=== PATIENT | male | born 2000 | race African-American/Black ===

== ENCOUNTER 2023-06-26 23:44 | Emergency (ER) | payer BC, SELFPAY ==
[2023-06-26 23:48] VITALS: BP 107/88; PULSE 71; RESP 18; TEMP 36.3; O2SAT 100
--- NOTE | 2023-06-27 00:48 | ED.GENADULT ---
HPI - General Adult General Chief complaint: Abdominal Pain Stated complaint: abd pain Time Seen by Provider: 06/27/23 00:08 Source: patient Mode of arrival: ambulatory Limitations: no limitations History of Present Illness HPI narrative: this is a 22-year-old male who presents to the ED with chief complaint of right side pain for the past 2 days. Reports it is intermittent in nature and feels like cramping sensation. Reports that has a lot of problems with muscular cramps and this feels similar. pain does not radiate. Denies fevers, chills, nausea, vomiting, urinary symptoms, loss of appetite, injury or trauma. Related Data Allergies Allergy/AdvReac Type Severity Reaction Status Date / Time No Known Allergies Allergy Verified 06/27/23 01:00 Review of Systems Review of Systems: All systems as dictated in HPI Exam Narrative: GENERAL: Well-appearing, well-nourished, and in no acute distress. resting comfortably HEAD: Normocephalic, atraumatic. EYES: PERRLA and EOMI. ENT: Nares clear, no rhinorrhea or epistaxis. Mucous membranes moist. Oropharynx without tonsillar hypertrophy exudate or other lesions. NECK: Supple. No adenopathy or masses. CHEST: No respiratory distress. Clear to auscultation. No wheezes rales or rhonchi HEART: Regular rate and rhythm. No murmur heard. Normal peripheral pulses. ABDOMEN: There is tenderness to the lateral abdominal wall in the musculature. Just inferior to the inferior most ribs. Spann sign negative. McBurney point negative. No CVA tenderness bilaterally. Soft, nontender, nondistended, normal active bowel sounds. MSK: Normal range of motion. No edema. SKIN: Warm, dry, no rash. NEURO: Alert and oriented x3. No focal deficits. PSYCH: Normal mood and affect. Course Vital Signs Vital signs: Vital Signs Temperature 97.3 F L 06/26/23 23:48 Pulse Rate 71 06/26/23 23:48 Respiratory Rate 18 06/26/23 23:48 Blood Pressure 107/88 06/26/23 23:48 Pulse Oximetry 100 06/26/23 23:48 Oxygen Delivery Room Air 06/26/23 23:48 Temperature 97.3 F L 06/26/23 23:48 Pulse Rate 60 06/27/23 02:13 Respiratory Rate 17 06/27/23 02:13 Blood Pressure 149/96 H 06/27/23 02:13 Pulse Oximetry 98 06/27/23 02:13 Oxygen Delivery Room Air 06/26/23 23:48 Medical Decision Making MDM Narrative Medical decision making narrative: This is a 22-year-old male who presents to the ED with chief complaint of right side pain for the past day. Described as cramps. Vitals are normal. Exam shows tenderness focally just inferior to the right lateral ribs. There is no flank tenderness. No Spann sign. Overall abdominal exam is benign. Lab work is grossly unremarkable. Urinalysis negative. He improved greatly with Toradol. Shared decision making to avoid CT scan given otherwise reassuring workup. Symptoms consistent with a musculoskeletal etiology of pain. Pt will be discharged in stable condition. Return precautions given and supportive measures discussed. Pt is understanding and agreeable with plan for discharge and follow-up with PCP. Vital Signs Vital Signs: Vital Signs Temperature 97.3 F L 06/26/23 23:48 Pulse Rate 71 06/26/23 23:48 Respiratory Rate 18 06/26/23 23:48 Blood Pressure 107/88 06/26/23 23:48 Pulse Oximetry 100 06/26/23 23:48 Oxygen Delivery Room Air 06/26/23 23:48 Temperature 97.3 F L 06/26/23 23:48 Pulse Rate 60 06/27/23 02:13 Respiratory Rate 17 06/27/23 02:13 Blood Pressure 149/96 H 06/27/23 02:13 Pulse Oximetry 98 06/27/23 02:13 Oxygen Delivery Room Air 06/26/23 23:48 Lab Data 06/27/23 00:48 06/27/23 00:48 Labs: Lab Results 06/27/23 06/27/23 Range/Units 00:48 01:01 WBC 5.5 (4.5-10.0) K/mm3 RBC 4.72 (4.6-6.20) M/mm3 Hgb 14.4 (14.0-18.0) g/dL Hct 41.3 L (42.0-52.0) % MCV 87.5 (80-100) fl MCH 30.5 (26-34) pg MCHC 34
[2023-06-27 00:54] LABS: Basophils Percent Auto 0.4 % (0.2-1.2); Eosinophils Absolute Auto 0.1 K/mm3 (0-0.3); Eosinophils Percent Auto 0.9 % (0-4.4); Hematocrit 41.3 % (42.0-52.0); Hemoglobin 14.4 g/dL (14.0-18.0); Immature Granulocyte Absolute 0.01 K/mm3 (0.00-0.031); Immature Granulocyte Percent A 0.2 % (0-0.5); Lymphocytes Absolute Auto 1.99 K/mm3 (0.9-3.2); Lymphocytes Percent Auto 36.2 % (18.3-44.2); Mean Corpuscular HGB Conc 34.9 g/dl (32-36); Mean Corpuscular Hemoglobin 30.5 pg (26-34); Mean Corpuscular Volume 87.5 fl (80-100); Mean Platelet Volume 10.2 fl (7.4-10.4); Monocytes Absolute Auto 0.6 K/mm3 (0.1-0.6); Monocytes Percent Auto 10.7 % (2.6-8.5); Neutrophils Absolute Auto 2.8 K/mm3 (1.3-6.7); Neutrophils Percent Auto 51.6 % (45.5-73.1); Platelet Count Result 250 k/mm3 (150-375); Red Blood Count 4.72 M/mm3 (4.6-6.20); Red Cell Distribution Width 12.7 % (11.5-14.5); White Blood Count 5.5 K/mm3 (4.5-10.0)
[2023-06-27] MEDS: KETOROLAC 15 MG/ML VIAL (*BKC) 30 MG IV PUSH (01:02)
[2023-06-27 01:08] LABS: Appearance Urine Clear (Clear); Bilirubin Urine Negative (Negative); Blood Urine Negative (Negative); Color Urine Yellow (Yellow); Glucose Urine UA Negative (Negative); Ketones Urine Negative (Negative); Leukocyte Esterase Ur Negative LEU/UL (Negative); Nitrate Urine Negative (Negative); Protein Urine Negative (Negative); Specific Grav Ur 1.013 (1.001-1.035); pH Urine 6.5 (5.0-9.0)
[2023-06-27 01:12] LABS: Alanine Aminotransferase 24 U/L (6-50); Albumin Level 4.4 g/dL (3.5-5.1); Alkaline Phosphatase 76 U/L (38-126); Anion Gap 7 mmol/L (8-16); Aspartate Amino Transferase 35 U/L (17-59); Bilirubin,Total 0.6 mg/dL (0.2-1.3); Blood Urea Nitrogen 12 mg/dL (9-20); Calcium 8.9 mg/dL (8.4-10.2); Carbon Dioxide 27 mmol/L (22-30); Chloride 103 mmol/L (98-107); Estimated CRCL calculation 115 ml/min; Estimated Glomerular Filt Rate > 60; Glucose 101 mg/dL (65-110); Lipase 89 U/L (23-300); Potassium 3.7 mmol/L (3.4-5.0); Sodium 137 mmol/L (137-145)
[2023-06-27 02:00] VITALS: BP 110/78; PULSE 70; RESP 17; O2SAT 100
[2023-06-27 02:12] LABS: Add Urine Microscopic? NO
[2023-06-27 02:13] VITALS: BP 149/96; PULSE 60; RESP 17; O2SAT 98
== END 2023-06-27 02:16 | disposition home or self-care (01) ==
PROVIDERS: Emergency Medicine; Emergency Provider Physician Assistant
DX: R10.9 Unspecified abdominal pain (principal)
CPT/HCPCS: 36415; 80053; 81003; 83690; 85025; 96374; 99284; J1885

== ENCOUNTER 2023-07-03 21:24 | Emergency (ER) | payer BC, SELFPAY ==
--- NOTE | ~2023-07-03 | CT_ITS ---
EXAMINATION: CT abdomen pelvis w con INDICATION: Right-sided abdominal pain TECHNIQUE: Computed tomographic images of the abdomen and pelvis were obtained after the administrati on of 100 cc of Omnipaque 350 intravenous contrast. The dose-length product (DLP) was 840.87 mGy-cm. Automated exposure control and iterative reconstruction technique were employed. COMPARISON: None available FINDINGS: The lung bases are clear. The heart size is normal. Cysts of the liver measure up to 5 mm i n the right hepatic lobe. The spleen, pancreas, gallbladder, and adrenal glands are normal. The kidne ys are unremarkable. No stones are identified in the kidneys, ureters, or bladder. No hydronephrosis or hydroureter. No pathologically enlarged abdominal or pelvic lymph nodes are identified. No free in traperitoneal gas or evidence of bowel obstruction. The appendix is normal. There is mild distention of the urinary bladder. IMPRESSION: 1. No CT correlate for the patient's symptoms. Reviewed, dictated and finalized at location F. [employer]
[2023-07-03 21:50] VITALS: BP 135/72; RESP 16; TEMP 36.6; O2SAT 100
[2023-07-04] MEDS: ONDANSETRON INJ 4 MG/2 ML VIAL IV PUSH (02:44)
[2023-07-04] MEDS: MORPHINE SULFATE (*CRX) 4 MG/ML INJ IV PUSH (02:44)
[2023-07-04 02:50] VITALS: BP 136/94; PULSE 76; RESP 15; O2SAT 100
[2023-07-04 03:00] LABS: Basophils Percent Auto 0.1 % (0.2-1.2); Eosinophils Absolute Auto 0.1 K/mm3 (0-0.3); Eosinophils Percent Auto 0.7 % (0-4.4); Hemoglobin 14.4 g/dL (14.0-18.0); Immature Granulocyte Absolute 0.02 K/mm3 (0.00-0.031); Immature Granulocyte Percent A 0.3 % (0-0.5); Mean Corpuscular HGB Conc 34.3 g/dl (32-36); Mean Corpuscular Hemoglobin 30.3 pg (26-34); Mean Corpuscular Volume 88.2 fl (80-100); Mean Platelet Volume 10.7 fl (7.4-10.4); Monocytes Absolute Auto 0.5 K/mm3 (0.1-0.6); Monocytes Percent Auto 7.2 % (2.6-8.5); Neutrophils Percent Auto 71.7 % (45.5-73.1); Platelet Count Result 242 k/mm3 (150-375); Red Blood Count 4.76 M/mm3 (4.6-6.20)
[2023-07-04 03:06] LABS: Alanine Aminotransferase 28 U/L (6-50); Albumin Level 4.4 g/dL (3.5-5.1); Alkaline Phosphatase 81 U/L (38-126); Anion Gap 8 mmol/L (8-16); Aspartate Amino Transferase 37 U/L (17-59); Bilirubin,Total 0.6 mg/dL (0.2-1.3); Blood Urea Nitrogen 12 mg/dL (9-20); Calcium 9.2 mg/dL (8.4-10.2); Carbon Dioxide 30 mmol/L (22-30); Chloride 103 mmol/L (98-107); Estimated CRCL calculation 97 ml/min; Estimated Glomerular Filt Rate > 60; Glucose 106 mg/dL (65-110); Lipase 50 U/L (23-300); Potassium 4.2 mmol/L (3.4-5.0); Sodium 141 mmol/L (137-145)
--- NOTE | 2023-07-04 03:18 | ED.ABDPAIN ---
HPI - Abdominal Pain General Chief Complaint: Abdominal Pain Stated Complaint: right flank pain Time Seen by Provider: 07/04/23 01:38 History of Present Illness HPI narrative: Patient is a 22-year-old gentleman who presents emergency department with chief complaint of right flank pain. The patient reports that he was coughing and had pain in the right side of his abdomen patient reports symptoms are worse with inspiration worse with movement. Patient denies fever denies chills denies shortness of breath. Related Data Allergies Allergy/AdvReac Type Severity Reaction Status Date / Time No Known Allergies Allergy Verified 07/03/23 21:24 Review of Systems Review of Systems: A 10 system review of systems was completed on the patient and is negative except for what is stated in the HPI. Nursing and ancillary documentation was reviewed. Exam Narrative: GENERAL: Well-appearing, well-nourished, and in no acute distress. HEAD: Normocephalic, atraumatic. EYES: PERRLA and EOMI. ENT: Nares clear, no rhinorrhea or epistaxis. Mucous membranes moist. NECK: Supple. CHEST: Clear to auscultation. No respiratory distress. chest wall is tender to palpation in the lower ribs HEART: Regular rate and rhythm. No murmur heard. Normal peripheral pulses. ABDOMEN: Soft, tenderness to palpation in the right upper quadrant, nondistended, normal active bowel sounds. EXTREMITIES: Normal range of motion. No edema. SKIN: Warm, dry, no rash. NEURO: No focal deficits. Alert and oriented x3. PSYCH: Normal mood and affect. Course Vital Signs Vital signs: Vital Signs Temperature 36.6 C 07/03/23 21:50 Respiratory Rate 16 07/03/23 21:50 Blood Pressure 135/72 07/03/23 21:50 Pulse Oximetry 100 07/03/23 21:50 Oxygen Delivery Room Air 07/03/23 21:50 Temperature 36.6 C 07/03/23 21:50 Pulse Rate 60 07/04/23 05:58 Respiratory Rate 15 07/04/23 05:58 Blood Pressure 128/78 07/04/23 05:58 Pulse Oximetry 100 07/04/23 05:58 Oxygen Delivery Room Air 07/03/23 21:50 MDM - Abdominal Pain MDM Narrative Medical decision making narrative: differential diagnosis includes rib fracture, intra-abdominal infection, cholecystitis, diverticulitis pancreatitis laboratory studies were obtained the patient which within normal limits. CT scan of the abdomen pelvis showed no acute abnormality Lab Data 07/04/23 02:43 07/04/23 02:43 Labs: Lab Results 07/04/23 Range/Units 02:43 WBC 7.0 (4.5-10.0) K/mm3 RBC 4.76 (4.6-6.20) M/mm3 Hgb 14.4 (14.0-18.0) g/dL Hct 42.0 (42.0-52.0) % MCV 88.2 (80-100) fl MCH 30.3 (26-34) pg MCHC 34.3 (32-36) g/dl RDW 13.0 (11.5-14.5) % Plt Count 242 (150-375) k/mm3 MPV 10.7 H (7.4-10.4) fl Immature Gran % (Auto) 0.3 (0-0.5) % Neut % (Auto) 71.7 (45.5-73.1) % Lymph % (Auto) 20.0 (18.3-44.2) % [place] % (Auto) 7.2 (2.6-8.5) % Eos % (Auto) 0.7 (0-4.4) % Baso % (Auto) 0.1 L (0.2-1.2) % Lymph # (Auto) 1.40 (0.9-3.2) K/mm3 [place] # (Auto) 0.5 (0.1-0.6) K/mm3 Eos # (Auto) 0.1 (0-0.3) K/mm3 Baso # (Auto) 0.0 (0.0-0.1) K/mm3 Abs Immat Gran (auto) 0.02 (0.00-0.031) K/mm3 Absolute Neuts (auto) 5.0 (1.3-6.7) K/mm3 Absolute Nucleated RBC 0.0 (0.0-0.012) K/mm3 Nucleated RBC % 0.0 (0.0-0.2) % Sodium 141 (137-145) mmol/L Potassium 4.2 (3.4-5.0) mmol/L Chloride 103 (98-107) mmol/L Carbon Dioxide 30 (22-30) mmol/L Anion Gap 8 (8-16) mmol/L BUN 12 (9-20) mg/dL Creatinine 1.20 (0.7-1.3) mg/dL Estim Creat Clear Calc 97 ml/min Estimated GFR > 60 (59 - ) Glucose 106 (65-110) mg/dL Calcium 9.2 (8.4-10.2) mg/dL Total Bilirubin 0.6 (0.2-1.3) mg/dL AST 37 (17-59) U/L ALT 28 (6-50) U/L Alkaline Phosphatase 81 (38-126) U/L Total Protein 8.0 (6.3-8.2) g/dL Albumin 4.4 (3.5-5.1) g/dL Lipase 50 (23-300) U/L Urine Color Yellow (Yellow) Urine Appear
[2023-07-04 05:58] VITALS: BP 128/78; PULSE 60; RESP 15; O2SAT 100
[2023-07-04 05:59] LABS: Appearance Urine Clear (Clear); Bilirubin Urine Negative (Negative); Blood Urine Negative (Negative); Color Urine Yellow (Yellow); Glucose Urine UA Negative (Negative); Ketones Urine Negative (Negative); Leukocyte Esterase Ur Negative LEU/UL (Negative); Nitrate Urine Negative (Negative); Protein Urine Negative (Negative); pH Urine 6.5 (5.0-9.0)
[2023-07-04 06:10] LABS: Specific Grav Ur 1.049 (1.001-1.035)
[2023-07-04 06:11] LABS: Add Urine Microscopic? NO
[2023-07-04] MEDS: HYDROcodone/acetaminophen (*CRX) 5-325 MG TABLET 1 TAB PO (07:37)
[2023-07-04 07:43] VITALS: BP 119/75; PULSE 74; RESP 13; O2SAT 99
== END 2023-07-04 07:45 | disposition home or self-care (01) ==
PROVIDERS: Emergency Provider Emergency Medicine
DX: R10.11 Right upper quadrant pain (principal)
CPT/HCPCS: 36415; 74177; 80053; 81003; 83690; 85025; 96374; 96375; 99284; A9270; J2270; J2405; Q9967

== ENCOUNTER 2023-11-26 22:47 | Emergency (ER) | payer SELFPAY ==
[2023-11-26 22:48] VITALS: BP 158/109; PULSE 70; RESP 16; TEMP 36.4; O2SAT 99
--- NOTE | 2023-11-27 01:46 | ED.GENADULT ---
HPI - General Adult General Chief complaint: Unspecified Stated complaint: i think i pulled a rib muscle Time Seen by Provider: 11/27/23 00:12 Source: patient Limitations: no limitations History of Present Illness HPI narrative: Patient is a 23-year-old male presents to the emergency department complaining of a rib strain. Patient notes he has been coughing for the past few days and with no started to have some left lower rib pain every coughs. Patient is to history is in the past when he strain his ribs exam better with medications. Patient does not want an x-ray. Denies any significant difficulty breathing. Patient denies any significant mucus or sputum production when he coughs. Patient denies fever, chest pain, history of blood clots, urinary changes. Patient is the tried Motrin with only minimal relief. Patient is the pain is worse whenever he is coughing or significantly straining his left ribs. Related Data Allergies Allergy/AdvReac Type Severity Reaction Status Date / Time No Known Allergies Allergy Verified 07/03/23 21:24 Review of Systems Review of Systems: A 10 system review of systems was completed on the patient and is negative except for what is stated in the HPI. Nursing and ancillary documentation was reviewed. PMFSH Comments At time of signature, I have reviewed and agree with nursing past medical, surgical, social and family history unless otherwise noted. Please see the nursing chart for further information. There is no relevant family history pertinent to the presenting complaint. Exam Narrative: CONST: No acute distress. Well nourished. HENMT: Head is normocephalic and atraumatic. Moist mucous membranes. EYES: No conjunctival icterus, injection, or pallor NECK: No meningeal signs. RESP: Able to speak in full sentences. Normal respiratory effort. CTAB. CARDIO: Regular rate. Regular rhythm. 2+ radial pulses bilaterally. GI: Nondistended. No tenderness to palpation. Soft. : No CVA tenderness to palpation. SKIN: No rashes or lesions noted on exposed skin. NEURO: Oriented x3. Moves all extremities. EXTREM/MSK/BACK: No pedal edema. Mild left lateral inferior chest wall tenderness to palpation, no crepitus, no palpable deformities. PSYCH: Normal affect. Course Vital Signs Vital signs: Vital Signs Temperature 97.6 F 11/26/23 22:48 Pulse Rate 70 11/26/23 22:48 Respiratory Rate 16 11/26/23 22:48 Blood Pressure 158/109 H 11/26/23 22:48 Pulse Oximetry 99 11/26/23 22:48 Oxygen Delivery Room Air 11/26/23 22:48 Temperature 97.6 F 11/26/23 22:48 Pulse Rate 70 11/26/23 22:48 Respiratory Rate 16 11/26/23 22:48 Blood Pressure 158/109 H 11/26/23 22:48 Pulse Oximetry 99 11/26/23 22:48 Oxygen Delivery Room Air 11/26/23 22:48 Medical Decision Making MDM Narrative Medical decision making narrative: Patient presents with the above complaint. Initial vitals are remarkable for no significant abnormalities. Physical examination as noted above. Plan discussed: Patient not drive to the emergency department today. Will give diazepam for muscle relaxer, Toradol for pain, lidocaine patch. Patient does not want an x-ray today. Patient advised on strict return precautions. Patient demonstrates understanding and agreeable plan of care. Patient discharged in stable condition. Vital Signs Vital Signs: Vital Signs Temperature 97.6 F 11/26/23 22:48 Pulse Rate 70 11/26/23 22:48 Respiratory Rate 16 11/26/23 22:48 Blood Pressure 158/109 H 11/26/23 22:48 Pulse Oximetry 99 11/26/23 22:48 Oxygen Delivery Room Air 11/26/23 22:48 Temperature 97.6 F 11/26/23 22:48 Pulse Rate 70 11/26/23 22:48 Respiratory Rate 16 11/26/23 22:48 Blood Pressure 158/109 H 11/26/23 22:48 Pulse Oximetry 99 11/26/23 22:48 Oxygen Delivery Room Air 11/26/23 22:48 Discharge Plan Discharge Clinical Impression: Rib sprain Q
[2023-11-27] MEDS: LIDOCAINE 5% PATCH 1 PATCH TRANSDERM (02:18)
[2023-11-27] MEDS: KETOROLAC 30 MG/ML VIAL (*BKC) 15 MG IM (02:18)
[2023-11-27] MEDS: diazePAM (*CRX) 5 MG TABLET PO (02:18)
[2023-11-27 02:29] VITALS: BP 152/82; PULSE 71; RESP 14; O2SAT 100
== END 2023-11-27 02:29 | disposition home or self-care (01) ==
PROVIDERS: Emergency Provider Student in an Organized Health Care Education/Training Program; PCP Family Medicine
DX: S23.41XA Sprain of ribs, initial encounter (principal); X50.9XXA Other and unspecified overexertion or strenuous movements or postures, initial encounter
CPT/HCPCS: 96372; 99283; A9270; J1885

== ENCOUNTER 2024-10-31 18:32 | Emergency (ER) | payer SELFPAY ==
--- NOTE | ~2024-10-31 | CT_ITS ---
CT abdomen pelvis w con Ordering provider: Norris Whaley MD History: 23 years Male with . Generalized cramping . Comparison: July 04, 2023 Technique: CT abdomen and pelvis with IV and without oral contrast. Automated exposure control and it erative reconstruction technique were employed. The dose-length product was 1472.37 mGy-cm. 100 mL Om nipaque 350 was given. Findings: VISUALIZED LOWER CHEST: Dependent atelectatic changes in the right lung base posteriorly. UPPER ABDOMINAL ORGANS: Liver: Tiny hyperdensities in the right lobe of the liver most likely cysts unchanged. Gallbladder: Normal. Spleen: Normal. Stomach/duodenum: Normal. Pancreas: Slightly prominent pancreatic duct. Follow-up advised. Adrenals: Normal. Kidneys: Normal. PELVIC ORGANS: The bladder is underfilled with thickened wall. Evaluation for cystitis advised. BOWEL AND MESENTERY: Colon: No evidence of the diverticulitis. Fecal material in the right side of the colon. Normal appen kathy. Small Bowel: Normal. No obstruction. Peritoneum/mesentery: No free air or free fluid. No mesenteric lymphadenopathy. RETROPERITONEUM: Normal aorta. No retroperitoneal lymphadenopathy. MUSCULOSKELETAL: Superficial soft tissues: The superficial soft tissues are normal. Bones: Normal spine. IMPRESSION: 1. No evidence of appendicitis, diverticulitis or intestinal obstruction. 2. Tiny cysts in the liver unchanged from previous examination. 3. Constipation. 4. Thickening of the wall of the gallbladder which may indicate cystitis. Clinical correlation advis ed. Reviewed, dictated and finalized at location A. IMPRESSION: 1. No evidence of appendicitis, diverticulitis or intestinal obstruction. 2. Tiny cysts in the liver unchanged from previous examination. 3. Constipation. 4. Thickening of the wall of the gallbladder which may indicate cystitis. Clin ical correlation advised.
[2024-10-31 18:34] VITALS: BP 157/89; PULSE 90; RESP 16; TEMP 36.6; O2SAT 97
[2024-10-31 22:26] VITALS: BP 159/85; PULSE 86; RESP 18; O2SAT 99
--- NOTE | 2024-10-31 22:34 | ED_ITS ---
HPI - Abdominal Pain General Chief Complaint: Abdominal Pain Stated Complaint: abd cramping Time Seen by Provider: 10/31/24 22:06 History of Present Illness HPI narrative: Patient is a 23-year-old male who presents to the emergency department this evening complaining of abdominal cramping for the past 2 days. Denies any nausea vomiting or diarrhea, any constipation. Denies any similar symptoms in the past. Denies any recent illness, fevers or chills. No additional symptoms or concerns at this time. Related Data Allergies Allergy/AdvReac Type Severity Reaction Status Date / Time No Known Allergies Allergy Verified 10/31/24 18:33 Review of Systems 2 Review of Systems: All systems are reviewed and are negative unless stated otherwise in the HPI. Exam 2 Narrative: General: Alert, awake, afebrile, in no acute distress. HEENT: PERRL, no rhinorrhea, no post nasal drip, oropharynx clear. Neck: Trachea midline, no JVD, no lymphadenopathy. Cardiovascular: Regular rate and rhythm, no murmurs, rubs or gallops, no peripheral edema. Respiratory: Clear to auscultation bilaterally, no tachypnea, no wheezing, no rhonchi, no rubs, no respiratory distress. Abdomen: Soft, nontender, nondistended, no rebound, no guarding, no peritoneal signs. Musculoskeletal: No joint swelling or deformity, normal muscle tone. Skin: No rashes or petechia, no signs of infection. Psychiatric: Alert and oriented, normal behavior and judgment for situation. Neurological: Alert and oriented to person, place, and time. Follows all commands. No focal deficits, speech is clear and fluent. Course Vital Signs Vital signs: Vital Signs Temperature 97.9 F 10/31/24 18:34 Pulse Rate 90 10/31/24 18:34 Respiratory Rate 16 10/31/24 18:34 Blood Pressure 157/89 H 10/31/24 18:34 Pulse Oximetry 97 10/31/24 18:34 Oxygen Delivery Room Air 10/31/24 18:34 Temperature 97.9 F 10/31/24 18:34 Pulse Rate 61 10/31/24 23:32 Respiratory Rate 15 10/31/24 23:32 Blood Pressure 138/94 H 10/31/24 23:32 Pulse Oximetry 99 10/31/24 23:32 Oxygen Delivery Room Air 10/31/24 18:34 MDM - Abdominal Pain MDM Narrative Medical decision making narrative: The patient was evaluated by myself in the emergency department. History is obtained from patient who is an independent historian and physical exam was performed. External medical records were reviewed at this time. IV was established and pertinent tests were ordered. Patient was administered 1 L IV fluid bolus with normal saline, 2 mg of IV morphine for pain and 4 mg of IV Zofran for nausea. Laboratory results obtained revealing a lipase level of 878 otherwise unremarkable. Imaging studies obtained included CT abdomen pelvis with IV contrast which was independently interpreted by me revealing: IMPRESSION: 1. No evidence of appendicitis, diverticulitis or intestinal obstruction. 2. Tiny cysts in the liver unchanged from previous examination. 3. Constipation. 4. Thickening of the wall of the gallbladder which may indicate cystitis. Clinical correlation advised. Patient was informed of these findings at bedside. Denies any right upper or left upper quadrant abdominal pain. Denies any history of pancreatitis. Patient admits that throughout the past 3 days he has not been having as regular bowel movements that he see normally does. He was informed that he will be placed on a stool softener and laxative to help with his constipation. Patient is requesting a script for muscle relaxers as well. Differential diagnosis considerations include pancreatitis, appendicitis, gastritis, peptic ulcer disease. Comorbidities impacting this visit include none. I have evaluated and discussed social determinants of health with the patient that could potentially impact subsequent diagnosis and treatment plans. On repeat assessment of the patient, reevaluation revealed that the patient is doing well and is in no acute distress. Patient symptoms have improved since she arrived to our emergency department. Repeat vital signs were all reviewed and noted to be stable. Differential diagnosis and treatment plan were discussed with the patient at bedside. Patient agrees with discussion and after shared medical decision making agrees with discharge. All questions were answered to the patient's satisfaction. Patient will follow up with his PCP in 3-5 days. Script for Robaxin, Colace and MiraLax was sent to patient's pharmacy to take as prescribed Patient was provided with strict return precautions and instructed to return to the emergency department if any new or worsening symptoms develop. The patient was discharged in stable condition. Lab Data 10/31/24 22:18 10/31/24 22:18 Labs: Lab Results 10/31/24 10/31/24 Range/Units 22:18 22:23 WBC 8.6 (4.5-10.0) K/mm3 RBC 5.59 (4.6-6.20) M/mm3 Hgb 16.1 (14.0-18.0) g/dL Hct 46.6 (42.0-52.0) % MCV 83.4 (80-100) fl MCH 28.8 (26-34) pg MCHC 34.5 (32-36) g/dl RDW 13.2 (11.5-14.5) % Plt Count 285 (150-375) k/mm3 MPV 10.6 H (7.4-10.4) fl Immature Gran % (Auto) 0.1 (0-0.5) % Neut % (Auto) 61.0 (45.5-73.1) % Lymph % (Auto) 29.9 (18.3-44.2) % [place] % (Auto) 8.0 (2.6-8.5) % Eos % (Auto) 0.8 (0-4.4) % Baso % (Auto) 0.2 (0.2-1.2) % Lymph # (Auto) 2.57 (0.9-3.2) K/mm3 [place] # (Auto) 0.7 H (0.1-0.6) K/mm3 Eos # (Auto) 0.1 (0-0.3) K/mm3 Baso # (Auto) 0.0 (0.0-0.1) K/mm3 Abs Immat Gran (auto) 0.01 (0.00-0.031) K/mm3 Absolute Neuts (auto) 5.2 (1.3-6.7) K/mm3 Absolute Nucleated RBC 0.000 (0.0-0.012) K/mm3 Nucleated RBC % 0.0 (0.0-0.2) % Sodium 137 (137-145) mmol/L Potassium 4.2 (3.4-5.0) mmol/L Chloride 102 (98-107) mmol/L Carbon Dioxide 26 (22-30) mmol/L Anion Gap 9 (4-12) mmol/L BUN 12 (9-20) mg/dL Creatinine 1.29 (0.7-1.3) mg/dL Estim Creat Clear Calc 99 ml/min Estimated GFR > 60 (59 - ) Glucose 101 (65-110) mg/dL Calcium 9.4 (8.4-10.2) mg/dL Magnesium 2.3 (1.6-2.3) mg/dL Total Bilirubin 0.4 (0.2-1.3) mg/dL AST 55 (17-59) U/L ALT 41 (6-50) U/L Alkaline Phosphatase 104 (38-126) U/L Total Protein 8.6 H (6.3-8.2) g/dL Albumin 4.7 (3.5-5.1) g/dL Lipase 878 H (23-300) U/L Urine Color Yellow (Yellow) Urine Appearance Clear (Clear) Urine pH 6.0 (5.0-9.0) Ur Specific [place] 1.012 (1.001-1.035) Urine Protein Negative (Negative) mg/dL Urine Glucose (UA) Negative (Negative) mg/dL Urine Ketones Negative (Negative) mg/dL Ur Blood (Man) Negative (Negative) Urine Nitrate Negative (Negative) Urine Bilirubin Negative (Negative) Urine Urobilinogen 0.2 (<2.0) mg/dL Leukocyte Esterase Rfl Trace H (Negative) ODILIA/UL Urine RBC 0-2 (0-2) /hpf Urine WBC 0-5 (0-3) /hpf Ur Squamous Epith Cells None seen (Few) /hpf Urine Bacteria None seen /hpf Urine Casts 0-2 Imaging Data Radiologist's impression: ITS Impressions Abdomen/Pelvis CT 10/31/24 23:48 IMPRESSION: 1. No evidence of appendicitis, diverticulitis or intestinal obstruction. 2. Tiny cysts in the liver unchanged from previous examination. 3. Constipation. 4. Thickening of the wall of the gallbladder which may indicate cystitis. Clinical correlation advised. Discharge Plan Discharge Clinical Impression: Constipation, Abdominal pain Patient Disposition: Home Condition: Improved Instructions: Antibiotic Form, Constipation (DC), Abdominal Pain (ED) Additional Instructions: Please follow-up with the family doctor within the next 3-5 days. With emergency room for new worsening symptoms develop. Take the prescribed medications as instructed for your constipation. Patient Language: Jamaican Prescriptions: New docusate sodium [Colace] 100 mg capsule 100 mg PO BID 5 Days Qty: 10 0RF methocarbamol 750 mg tablet 750 mg PO HS Qty: 10 0RF polyethylene glycol 3350 [Miralax] 17 gram/dose powder 17 g PO DAILY Qty: 119 0RF No Action cyclobenzaprine 10 mg tablet 10 mg PO TID PRN (Reason: muscle spasm) Qty: 21 0RF diclofenac potassium 50 mg tablet 50 mg PO TID PRN (Reason: pain) Qty: 21 0RF acetaminophen 500 mg tablet 500 mg PO Q6H PRN (Reason: pain) Qty: 30 0RF lidocaine 5 % adhesive patch,medicated 1 patch topical DAILY Qty: 15 0RF Rx Instructions: leave on most painful area for up to 12 hrs ibuprofen 600 mg tablet 600 mg PO Q6H PRN (Reason: pain) Qty: 30 0RF cyclobenzaprine 5 mg tablet 5 mg PO TID PRN (Reason: muscle spasm) Qty: 30 0RF Follow-up/Referrals: Jo Tejeda DO [Primary Care Provider] - 3 Days Time of Disposition: 00:27
[2024-10-31 22:35] LABS: Basophils Percent Auto 0.2 % (0.2-1.2); Eosinophils Absolute Auto 0.1 K/mm3 (0-0.3); Eosinophils Percent Auto 0.8 % (0-4.4); Hematocrit 46.6 % (42.0-52.0); Hemoglobin 16.1 g/dL (14.0-18.0); Immature Granulocyte Absolute 0.01 K/mm3 (0.00-0.031); Immature Granulocyte Percent A 0.1 % (0-0.5); Lymphocytes Absolute Auto 2.57 K/mm3 (0.9-3.2); Lymphocytes Percent Auto 29.9 % (18.3-44.2); Mean Corpuscular HGB Conc 34.5 g/dl (32-36); Mean Corpuscular Hemoglobin 28.8 pg (26-34); Mean Corpuscular Volume 83.4 fl (80-100); Mean Platelet Volume 10.6 fl (7.4-10.4); Monocytes Absolute Auto 0.7 K/mm3 (0.1-0.6); Neutrophils Absolute Auto 5.2 K/mm3 (1.3-6.7); Platelet Count Result 285 k/mm3 (150-375); Red Blood Count 5.59 M/mm3 (4.6-6.20); Red Cell Distribution Width 13.2 % (11.5-14.5); White Blood Count 8.6 K/mm3 (4.5-10.0)
[2024-10-31 22:41] LABS: Add Urine Microscopic? YES; Appearance Urine Clear (Clear); Bacteria Urine None Seen /hpf; Bilirubin Urine Negative (Negative); Blood Urine Negative (Negative); Color Urine Yellow (Yellow); Glucose Urine UA Negative (Negative); Ketones Urine Negative (Negative); Leukocyte Esterase Ur Trace LEU/UL (Negative); Nitrate Urine Negative (Negative); Non Pathogenic Casts 0-2; Protein Urine Negative (Negative); RBC Urine 0-2 /hpf (0-2); Specific Grav Ur 1.012 (1.001-1.035); Squamous Epithelial Cell Urine None Seen /hpf (Few); Urobilinogen Urine 0.2 mg/dL (<2.0); WBC Urine 0-5 /hpf (0-3)
[2024-10-31 22:46] LABS: Alanine Aminotransferase 41 U/L (6-50); Albumin Level 4.7 g/dL (3.5-5.1); Alkaline Phosphatase 104 U/L (38-126); Anion Gap 9 mmol/L (4-12); Aspartate Amino Transferase 55 U/L (17-59); Bilirubin,Total 0.4 mg/dL (0.2-1.3); Blood Urea Nitrogen 12 mg/dL (9-20); Calcium 9.4 mg/dL (8.4-10.2); Carbon Dioxide 26 mmol/L (22-30); Chloride 102 mmol/L (98-107); Estimated CRCL calculation 99 ml/min; Estimated Glomerular Filt Rate > 60; Glucose 101 mg/dL (65-110); Lipase 878 U/L (23-300); Magnesium 2.3 mg/dL (1.6-2.3); Potassium 4.2 mmol/L (3.4-5.0); Sodium 137 mmol/L (137-145); Total Protein 8.6 g/dL (6.3-8.2)
[2024-10-31] MEDS: MORPHINE SULFATE (*CRX) 2 MG/ML INJ IV PUSH (23:27)
[2024-10-31] MEDS: ONDANSETRON INJ 4 MG/2 ML VIAL IV PUSH (23:27)
[2024-10-31] MEDS: SODIUM CHLORIDE 0.9% IV 1,000 ML 999 ML IV CONT (23:27)
[2024-10-31 23:32] VITALS: BP 138/94; PULSE 61; RESP 15; O2SAT 99
[2024-11-01 00:38] VITALS: BP 153/60; PULSE 63; RESP 15; O2SAT 100
== END 2024-11-01 00:40 | disposition home or self-care (01) ==
PROVIDERS: Emergency Provider Emergency Medicine; PCP Family Medicine
DX: K59.00 Constipation, unspecified (principal); R10.9 Unspecified abdominal pain; R93.2 Abnormal findings on diagnostic imaging of liver and biliary tract
CPT/HCPCS: 36415; 74177; 80053; 81001; 83690; 83735; 85025; 96361; 96374; 96375; 99284; J2270; J2405; J7030; Q9967

== ENCOUNTER 2025-01-03 00:54 | Emergency (ER) | payer SELFPAY ==
[2025-01-03 00:55] VITALS: BP 153/96; PULSE 84; RESP 17; TEMP 36.7; O2SAT 97
--- NOTE | 2025-01-03 01:03 | ECG_ITS ---
Test Date: 2025-01-03 01:10:53 Measurements Intervals [place] Rate: 73 P: 38 WV: 148 QRS: 40 QRSD: 91 T: 29 QT: 350 QTc: 386 Interpretive Statements SINUS RHYTHM WITH SINUS ARRHYTHMIA DELAYED PRECORDIAL R/S TRANSITION NONSPECIFIC ST ELEVATION IN DIFFUSE LEADS BASELINE ARTIFACT- I, II, III, AVR, AVL, V3-V4 BORDERLINE ECG No previous ECG available for comparison Electronically Signed On 01-03-2025 06:10:38 CDT by Elpidio Melchor D.O.
[2025-01-03 01:30] VITALS: PULSE 70
[2025-01-03 01:39] LABS: Hematocrit 42.4 % (42.0-52.0); Hemoglobin 14.8 g/dL (14.0-18.0); Immature Granulocyte Percent A 0.3 % (0-0.5); Lymphocytes Absolute Auto 2.20 K/mm3 (0.9-3.2); Mean Corpuscular HGB Conc 34.9 g/dl (32-36); Mean Corpuscular Hemoglobin 29.5 pg (26-34); Mean Corpuscular Volume 84.6 fl (80-100); Nucleated Red Blood Cells Absolute Auto 0.000 K/mm3 (0.0-0.012); Nucleated Red Blood Cells Perc 0.0 % (0.0-0.2); Platelet Count Result 241 k/mm3 (150-375); Red Blood Count 5.01 M/mm3 (4.6-6.20); White Blood Count 6.9 K/mm3 (4.5-10.0)
[2025-01-03 01:54] LABS: Alanine Aminotransferase 28 U/L (6-50); Albumin Level 4.3 g/dL (3.5-5.1); Alkaline Phosphatase 86 U/L (38-126); Anion Gap 9 mmol/L (4-12); Aspartate Amino Transferase 37 U/L (17-59); Bilirubin,Total 0.4 mg/dL (0.2-1.3); Blood Urea Nitrogen 13 mg/dL (9-20); Calcium 9.0 mg/dL (8.4-10.2); Carbon Dioxide 26 mmol/L (22-30); Chloride 102 mmol/L (98-107); Estimated CRCL calculation 94 ml/min; Estimated Glomerular Filt Rate > 60; Glucose 132 mg/dL (65-110); Potassium 3.7 mmol/L (3.4-5.0); Sodium 137 mmol/L (137-145); Total Protein 7.8 g/dL (6.3-8.2)
--- NOTE | 2025-01-03 02:19 | ED.ARRPALP ---
HPI - Arrhythmia/Palpitations General Chief Complaint: Arrhythmia/Palpitations Stated Complaint: I think my heart is racing Time Seen by Provider: 01/03/25 01:42 History of Present Illness HPI narrative: 24-year-old otherwise healthy male presenting to the emergency department with palpitations sensation. He states he has been having some difficulties with potassium lately and on a potassium self minute this time. 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 This resolved on triage arrival. Denies any other symptoms such as crushing chest discomfort, nausea, vomiting, jaw pain, back pain. No neurological deficits. No cardiac disease history to his knowledge. Patient does not have a PCP at this time. Related Data Allergies Allergy/AdvReac Type Severity Reaction Status Date / Time No Known Allergies Allergy Verified 01/03/25 00:55 Review of Systems Review of Systems: As reviewed above in HPI Exam Narrative: GENERAL: [Well-appearing, well-nourished, and in no acute distress.] HEAD: [Normocephalic, atraumatic.] EYES: [PERRLA and EOMI.] ENT: Nares clear, no rhinorrhea or epistaxis. Mucous membranes moist. NECK: Supple. CHEST: [Clear to auscultation. No respiratory distress.] HEART: [Regular rate and rhythm]. No murmur heard. [Normal peripheral pulses.] ABDOMEN: [Soft, nondistended], [nontender], [No rigidity or guarding] EXTREMITIES: Normal range of motion. [No edema.] SKIN: Warm, dry, no rash. NEURO: [No focal deficits]. Alert and oriented [x3.] PSYCH: [Normal mood and affect.] Course Vital Signs Vital signs: Vital Signs Temperature 36.7 C 01/03/25 00:55 Pulse Rate 84 01/03/25 00:55 Respiratory Rate 17 01/03/25 00:55 Blood Pressure 153/96 H 01/03/25 00:55 Pulse Oximetry 97 01/03/25 00:55 Oxygen Delivery Room Air 01/03/25 00:55 Temperature 36.7 C 01/03/25 00:55 Pulse Rate 70 01/03/25 01:30 Respiratory Rate 17 01/03/25 00:55 Blood Pressure 153/96 H 01/03/25 00:55 Pulse Oximetry 97 01/03/25 00:55 Oxygen Delivery Room Air 01/03/25 00:55 MDM - Arrhythmia/Palpitations MDM Narrative Medical decision making narrative: 24-year-old otherwise healthy male presenting to the emergency department with palpitations sensation. He states he has been having some difficulties with potassium lately and on a potassium self minute this time. 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 This resolved on triage arrival. Denies any other symptoms such as crushing chest discomfort, nausea, vomiting, jaw pain, back pain. No neurological deficits. No cardiac disease history to his knowledge. Patient does not have a PCP at this time. Patient has an unremarkable physical examination with strong symmetric pulses and no tachycardia or arrhythmia. Blood pressure mildly elevated but no tachypnea, tachycardia, hypoxia or fever. Patient states he has been taking some potassium supplements which may attribute to his symptoms but also states that he has been having caffeine including a 5 hour energy and has history of smoking marijuana. Otherwise well-appearing not any acute distress. Does not have a PCP to will have to refer him to 1. Laboratory studies and EKG were obtained. Likely suspect palpitations from dehydration, heat exposure for the weather, potassium derangements, less likely cardiac in nature given his lack of risk factors. EKG shows normal sinus rhythm. Electrolytes show some slight dehydration with a creatinine 1.32 but normal electrolytes otherwise. He was given a L of fluid and will be safe for discharge with PCP follow-up. Medical Records Attestation: I reviewed the patient's medical records. Lab Data Attestation: I reviewed the patient's lab results. 01/03/25 01:33 01/03/25 01:33 Labs: Lab Results 01/03/25 Range/Units 01:33 WBC 6.9 (4.5-10.0) K/mm3 RBC 5.01 (4.6-6.20) M/mm3 Hgb 14.8 (14.0-18.0) g/dL Hct 42.4 (42.0-52.0) % MCV 84.6 (80-100) fl MCH 29.5 (26-34) pg MCHC 34.9 (32-36) g/dl RDW 13.7 (11.5-14.5) % Plt Count 241 (150-375) k/mm3 MPV 10.4 (7.4-10.4) fl Immature Gran % (Auto) 0.3 (0-0.5) % Neut % (Auto) 60.2 (45.5-73.1) % Lymph % (Auto) 31.8 (18.3-44.2) % [place] % (Auto) 6.8 (2.6-8.5) % Eos % (Auto) 0.6 (0-4.4) % Baso % (Auto) 0.3 (0.2-1.2) % Lymph # (Auto) 2.20 (0.9-3.2) K/mm3 [place] # (Auto) 0.5 (0.1-0.6) K/mm3 Eos # (Auto) 0.0 (0-0.3) K/mm3 Baso # (Auto) 0.0 (0.0-0.1) K/mm3 Abs Immat Gran (auto) 0.02 (0.00-0.031) K/mm3 Absolute Neuts (auto) 4.2 (1.3-6.7) K/mm3 Absolute Nucleated RBC 0.000 (0.0-0.012) K/mm3 Nucleated RBC % 0.0 (0.0-0.2) % Sodium 137 (137-145) mmol/L Potassium 3.7 (3.4-5.0) mmol/L Chloride 102 (98-107) mmol/L Carbon Dioxide 26 (22-30) mmol/L Anion Gap 9 (4-12) mmol/L BUN 13 (9-20) mg/dL Creatinine 1.32 H (0.7-1.3) mg/dL Estim Creat Clear Calc 94 ml/min Estimated GFR > 60 (59 - ) Glucose 132 H (65-110) mg/dL Calcium 9.0 (8.4-10.2) mg/dL Total Bilirubin 0.4 (0.2-1.3) mg/dL AST 37 (17-59) U/L ALT 28 (6-50) U/L Alkaline Phosphatase 86 (38-126) U/L Total Protein 7.8 (6.3-8.2) g/dL Albumin 4.3 (3.5-5.1) g/dL Discharge Plan Discharge Clinical Impression: Palpitations Patient Disposition: Home Condition: Stable Instructions: Antibiotic Form Additional Instructions: Your laboratory studies show some slight dehydration. No signs of any electrolyte derangements and your potassium is fine here. You will need a primary care provider follow-up forward for further recommendations and workup but no urgent or emergent concerns were discover today. Patient Language: Danish Prescriptions: No Action cyclobenzaprine 10 mg tablet 10 mg PO TID PRN (Reason: muscle spasm) Qty: 21 0RF diclofenac potassium 50 mg tablet 50 mg PO TID PRN (Reason: pain) Qty: 21 0RF acetaminophen 500 mg tablet 500 mg PO Q6H PRN (Reason: pain) Qty: 30 0RF lidocaine 5 % adhesive patch,medicated 1 patch topical DAILY Qty: 15 0RF Rx Instructions: leave on most painful area for up to 12 hrs ibuprofen 600 mg tablet 600 mg PO Q6H PRN (Reason: pain) Qty: 30 0RF cyclobenzaprine 5 mg tablet 5 mg PO TID PRN (Reason: muscle spasm) Qty: 30 0RF docusate sodium [Colace] 100 mg capsule 100 mg PO BID 5 Days Qty: 10 0RF methocarbamol 750 mg tablet 750 mg PO HS Qty: 10 0RF polyethylene glycol 3350 [Miralax] 17 gram/dose powder 17 g PO DAILY Qty: 119 0RF Follow-up/Referrals: Ronnie Borrero MD [Physician] - 1 Week (Palpitations. Needs PCP) Jo Tejeda DO [Primary Care Provider] - Time of Disposition: 02:23
[2025-01-03] MEDS: LACTATED RINGERS 1,000 ML 999 ML IV CONT (02:30)
== END 2025-01-03 03:49 | disposition home or self-care (01) ==
LOC: ANHED 02:24
PROVIDERS: Emergency Provider Student in an Organized Health Care Education/Training Program; PCP Family Medicine
DX: R00.2 Palpitations (principal)
CPT/HCPCS: 36415; 80053; 85025; 93005; 96360; 99283; J7120